=== PATIENT | female | born 1935 | race Two or more races ===

== ENCOUNTER 2023-09-03 10:02 | Outpatient (CLI) | payer OTHER ==
[2023-09-03 11:22] LABS: PH,URINE 5.5 (5.0-8.0); URINE APPEARANCE Cloudy; URINE BILIRRUBIN Negative (NEGATIVE); URINE BLOOD Trace; URINE COLOR Yellow; URINE GLUCOSE Negative (NEGATIVE); URINE LEUKOCYTE Trace; URINE NITRATE Negative; URINE PROTEIN Negative (NEGATIVE); URINE UROBILINOGEN 0.2 E.U./dl
[2023-09-03 11:27] LABS: URINE EPITHELIAL CELLS 2.4 uL (0.0-38.8); URINE RBC 6.1 uL (0.0-20.8); URINE WBC 52.9 uL (0.0-23.2)
[2023-09-03 11:30] LABS: HEMATOCRIT 44.4 % (36.0-45.00); HEMOGLOBIN 14.5 g/dL (12.0-15.00); MEAN CELL VOLUME 92.7 fL (80.00-100.00); MEAN CORPUSCULAR HEMOGLOBIN 30.2 pg (27.00-32.0); MEAN CORPUSCULAR HGB CONC 32.5 g/dl (32.0-36.0); PLATELET COUNT 196 K/uL (150-450); RED BLOOD COUNT 4.79 M/uL (4.00-6.00); RED CELL DISTRIBUTION WIDTH 14.2 % (11.5-14.5)
[2023-09-03 11:41] LABS: URINE BACTERIA > 9821 uL (0.0-1933)
[2023-09-03 12:02] LABS: ALBUMIN 3.7 gm/dL (3.4-5.0); BILIRUBIN TOTAL 0.41 mg/dL (0.3-1.2); CALCIUM 9.4 mg/dL (8.5-10.1); CHOL HDL RATIO 2.9 (0-5.0); CREATININE SERUM 0.87 mg/dL (0.55-1.02); GFR 61.31; GLOBULINA 3.4 G/DL (2.4-3.5); TOTAL PROTEIN 7.1 gm/dL (6.4-8.2)
[2023-09-03 12:35] LABS: TSH 5.55 uIU/mL (0.358-3.74)
== END 2023-09-03 10:03 | disposition home or self-care (01) ==
LOC: LAB 10:02
DX: Z00.00 Encounter for general adult medical examination without abnormal findings (principal); Z00.8 Encounter for other general examination; R63.0 Anorexia; I10 Essential (primary) hypertension; R63.4 Abnormal weight loss; R42 Dizziness and giddiness; N39.0 Urinary tract infection, site not specified; Z13.220 Encounter for screening for lipoid disorders; E03.8 Other specified hypothyroidism